=== PATIENT | female | born 1970 | race Caucasian/White ===

== ENCOUNTER 2016-10-29 10:42 | Outpatient (CLI) | payer OTHER | END 2016-10-29 10:43 | disposition home or self-care (01) | DX: Z79.899 Other long term (current) drug therapy (principal) ==

== ENCOUNTER 2018-04-01 16:41 | Outpatient (CLI) | payer OTHER ==
--- NOTE | 2018-04-01 17:17 | XRAY Report ---
Procedure Date: 04/01/2018 Accession Number: [id number] / [id number] Procedure: XR - Hand 2 View LT CPT Code: FULL RESULT: EXAM: LEFT HAND RADIOGRAPHY EXAM DATE: 04/01/2018 05:07 PM. CLINICAL HISTORY: SPRAIN OF RADIOCARPAL JOINT OF LT WRIST. COMPARISON: None. TECHNIQUE: 2 views. FINDINGS: Bones: Normal. No fractures or bone lesions. Joints: Normal. No subluxations. Soft Tissues: Normal. No soft tissue swelling. IMPRESSION: Normal hand radiography. RAD[facility]
--- NOTE | 2018-04-01 17:18 | XRAY Report ---
Procedure Date: 04/01/2018 Accession Number: [id number] / [id number] Procedure: XR - Wrist 4 View LT CPT Code: FULL RESULT: EXAM: LEFT WRIST RADIOGRAPHY EXAM DATE: 04/01/2018 05:07 PM. CLINICAL HISTORY: SPRAIN OF RADIOCARPAL JOINT OF LT WRIST. COMPARISON: None. TECHNIQUE: 4 views. FINDINGS: Bones: Normal. No fractures or bone lesions. Joints: Normal. No subluxations. Soft Tissues: Normal. No soft tissue swelling. IMPRESSION: Normal wrist radiography. RADIA
== END 2018-04-01 16:42 | disposition home or self-care (01) ==
LOC: DI 16:41
PROVIDERS: ATTEND Internal Medicine
DX: S63.522A Sprain of radiocarpal joint of left wrist, initial encounter (principal)

== ENCOUNTER 2018-05-26 15:05 | Outpatient (CLI) | payer OTHER ==
--- NOTE | 2018-05-27 19:04 | MRI Report ---
Reason: THUMB PAIN,LEFT,DOI [id number] Procedure Date: 05/26/2018 Accession Number: [id number] / [id number] Procedure: MRI - Hand LT W/O CPT Code: FULL RESULT: EXAM: LEFT HAND MRI WITHOUT CONTRAST EXAM DATE: 05/26/2018 04:17 PM. CLINICAL HISTORY: Thumb pain, left, DOI 03/30/2018. COMPARISON: None. TECHNIQUE: Multiplanar, multisequence T1-weighted and fluid-sensitive sequences of the hand without contrast. Other: None. FINDINGS: Bones: No fractures or subluxations. No marrow edema. No bone lesions. Cartilage: The articular cartilage is unremarkable. Ligaments: The visualized collateral ligaments are intact. Tendons: Mild tenosynovitis of the extensor digitorum tendons at the level of the distal carpal row (image 18 series 601). Mild tenosynovitis distal extensor carpi radialis longus and brevis tendons. Musculature: No edema or fatty atrophy. Other: Small amount of fluid first carpometacarpal compartment. Small amount of fluid first metacarpophalangeal joint. The subcutaneous tissues are unremarkable. IMPRESSION: No MRI abnormalities in the hand. [facility] MUSCULOSKELETAL RADIOLOGY SECTION
== END 2018-05-26 15:06 | disposition home or self-care (01) ==
LOC: DI 15:05
PROVIDERS: ATTEND Orthopaedic Surgery
DX: M79.645 Pain in left finger(s) (principal)

== ENCOUNTER 2019-03-16 11:29 | Outpatient (CLI) | payer OTHER ==
--- NOTE | 2019-03-21 08:57 | Mammography Report ---
Reason: SCREENING MAMMO Procedure Date: 03/16/2019 Accession Number: [id number] / [id number] Procedure: MGS - Screening Mammo Dig Bilat CPT Code: FULL RESULT: EXAM: Screening Mammo Dig Bilat DATE: 03/16/2019 11:52 AM CLINICAL HISTORY: Screening encounter. Family history of breast cancer in the mother at the age of 55 and a paternal grandmother at the age of 50. TECHNIQUE: (B) - Bilateral CC, laterally exaggerated CC, MLO views were obtained. COMPARISON: None PARENCHYMAL PATTERN: (D) - The breast(s) demonstrate(s) heterogeneously dense fibroglandular parenchyma. FINDINGS: There are no suspicious masses, calcifications, or areas of distortion. IMPRESSION: Negative examination. BI-RADS category 1. RECOMMENDATION: (ANNUAL) - Recommend routine annual screening mammography. BI-RADS CATEGORY: (1) - Negative. STANDARD QUALIFYING STATEMENTS: 1. This examination was reviewed with the aid of Computer-Aided Detection (CAD). 2. A negative or benign imaging report should not preclude biopsy if clinically suspicious findings are present. 3. Dense breasts may obscure an underlying neoplasm. 4. This examination was reviewed without the aid of 3D breast imaging (tomosynthesis).
== END 2019-03-16 11:30 | disposition home or self-care (01) ==
LOC: DI.S 11:29
PROVIDERS: ATTEND Physician Assistant Medical
DX: Z12.31 Encounter for screening mammogram for malignant neoplasm of breast (principal); Z80.3 Family history of malignant neoplasm of breast
CPT/HCPCS: 77067

== ENCOUNTER 2019-06-15 13:06 | Outpatient (CLI) | payer OTHER ==
--- NOTE | 2019-06-15 15:38 | Ultrasound Report ---
Reason: MENORRHAGIA/MENOMETRORRHAGIA Procedure Date: 06/15/2019 Accession Number: [id number] / [id number] Procedure: US - Pelvic w/Transvaginal CPT Code: FULL RESULT: EXAM: PELVIC ULTRASOUND EXAM DATE: 06/15/2019 02:41 PM. CLINICAL HISTORY: MENORRHAGIA/MENOMETRORRHAGIA. Stated LMP 05/26/2019. COMPARISON: None. TECHNIQUE: Realtime transabdominal pelvic scan performed to identify the uterus and adnexa and as an overview of other pelvic structures, followed by transvaginal scan to provide greater detail of the uterus and adnexa, with static image documentation. FINDINGS: Uterus: 9.3 x 4.3 x 5.5 cm, volume 117 cc. Anteverted position. Heterogeneous echotexture. Masses: 1. Exophytic left fundal fibroid 2.4 x 1.9 x 2.2 cm. Endometrium: 8.3 mm. Normal. Cervix: Numerous cervical likely nabothian cysts. Right Ovary: 2.7 x 1.6 x 2.2 cm, volume 4.9 cc. Normal echotexture and blood flow. Left Ovary: 2.0 x 1.0 x 1.4 cm, volume 1.4 cc. Normal echotexture and blood flow. Free Fluid: None. Other: None. IMPRESSION: 1. Uterine fibroid. 2. Endometrial thickness is in the normal range assuming premenopausal patient. 3. Numerous cervical nabothian cysts. RADIA
== END 2019-06-15 13:07 | disposition home or self-care (01) ==
LOC: DI 13:06
PROVIDERS: ATTEND Physician Assistant Medical
DX: D25.9 Leiomyoma of uterus, unspecified (principal); N88.8 Other specified noninflammatory disorders of cervix uteri
CPT/HCPCS: 76830; 76856

== ENCOUNTER 2019-06-27 16:29 | Outpatient (CLI) | payer OTHER ==
[2019-06-27 16:41] LABS: BASOPHILS # (AUTO) 0.1 10^3/uL (0.0-0.1); BASOPHILS % (AUTO) 0.7 %; EOSINOPHILS # (AUTO) 0.3 10^3/uL (0.0-0.7); HGB - HEMOGLOBIN 13.6 g/dL (12.0-16.0); LYMPHOCYTES # (AUTO) 2.7 10^3/uL (1.5-3.5); LYMPHOCYTES % (AUTO) 30.7 %; MEAN CORPUSCULAR HEMOGLOBIN 31.9 pg (27.0-31.0); MEAN CORPUSCULAR HGB CONC 32.8 g/dL (32.0-36.0); MEAN CORPUSCULAR VOLUME 97.4 fL (81.0-99.0); MEAN PLATELET VOLUME 9.2 fL (7.9-10.8); MONOCYTES # (AUTO) 0.4 10^3/uL (0.0-1.0); MONOCYTES % (AUTO) 4.1 %; NEUTROPHILS # (AUTO) 5.4 10^3/uL (1.5-6.6); NEUTROPHILS % (AUTO) 61.2 %; PLT - PLATELET COUNT 313 10^3/uL (130-450); RED BLOOD COUNT 4.26 10^6/uL (4.20-5.40); RED CELL DISTRIBUTION WIDTH 12.9 % (12.0-15.0); WHITE BLOOD COUNT 8.8 x10^3/uL (4.8-10.8)
== END 2019-06-27 16:30 | disposition home or self-care (01) ==
LOC: LAB 16:29
PROVIDERS: ATTEND Obstetrics & Gynecology
DX: N92.0 Excessive and frequent menstruation with regular cycle (principal); N92.1 Excessive and frequent menstruation with irregular cycle
CPT/HCPCS: 36415; 84443; 85025

== ENCOUNTER 2019-07-13 08:49 | Day surgery (SDC) | payer OTHER ==
[2019-07-13] MEDS ORDERED: NEOSTIGMINE 1 MG/1 ML 10 ML MDV IVP ONE (08:50)
[2019-07-13] MEDS ORDERED: GLYCOPYRROLATE 1 MG/5 ML VIAL IVP ONE (08:50)
[2019-07-13] MEDS ORDERED: HYDROmorphone 1 MG/ML SYRINGE IVP ONE (08:50)
[2019-07-13] MEDS ORDERED: DEXAMETHASONE 4 MG/ML VIAL IVP ONE (08:50)
[2019-07-13] MEDS ORDERED: ROCURONIUM 50 MG/5 ML VIAL IVP ONE (08:50)
[2019-07-13] MEDS ORDERED: MIDAZOLAM 2 MG/2 ML VIAL IVP ONE (08:50)
[2019-07-13] MEDS ORDERED: KETOROLAC 30 MG/ML VIAL IVP ONE (08:50)
[2019-07-13] MEDS ORDERED: ePHEDrine 50 MG/ML VIAL IVP ONE (08:50)
[2019-07-13] MEDS ORDERED: PROPOFOL 200 MG/20 ML VIAL IVP ONE (08:50)
[2019-07-13 09:05] LABS: HCG UR QUAL NEGATIVE
[2019-07-13] MEDS ORDERED: LACTATED RINGERS 1,000 ML IV ONE ×2 (09:09→10:50)
--- NOTE | 2019-07-13 09:25 | ANESTHESIA ---
Pre-Anesthesia VS, & Labs - Diagnosis menometrorhagia, request for sterilization - Procedure laproscopic salpingectomy Vital Signs: Temp Pulse Resp BP Pulse Ox 37 C 110 H 16 120/84 H 98 07/13/19 09:10 07/13/19 09:10 07/13/19 09:10 07/13/19 09:10 07/13/19 09:10 Height 5 ft 6 in Weight (kg) 72.2 kg - Is Patient ?: No Home Medications and Allergies Home Medications: Ambulatory Orders Amitriptyline HCl 100 mg PO QPM 07/07/19 Naproxen 500 mg PO BID PRN 07/07/19 Levothyroxine [Synthroid] 25 mcg PO QDAC 09/25/14 Methylphenidate HCl [Ritalin] 20 mg PO TID 09/25/14 Amitriptyline HCl 100 mg PO QPM 07/07/19 Naproxen 500 mg PO BID PRN 07/07/19 Allergies/Adverse Reactions: Allergies Allergy/AdvReac Type Severity Reaction Status Date / Time amoxicillin trihydrate * Allergy Severe Hives Verified 09/28/14 11:13 [From Augmentin] codeine Allergy Severe Hives Verified 09/28/14 11:13 potassium clavulanate * Allergy Severe Hives Verified 09/28/14 11:13 [From Augmentin] Anes History & Medical History - Anesthetic History Anesthesia Complications: reports: No previous complications Family history of Anesthesia Complications: Denies Family history of Malignant Hyperthermia: Denies - Medical History Cardiovascular: reports: None Pulmonary: reports: None Gastrointestinal: reports: None Urinary: reports: None Neuro: reports: None Musculoskeletal: reports: None Endocrine/Autoimmune: reports: HyPOthyroidism Blood Disorders: reports: None Skin: reports: None, Other Smoking Status: Current every day smoker ([id number] yrs) Psychosocial: reports: No issues indicated - Surgical History General: Cholecystectomy, Other Gynecologic: section Orthopedic: Other Dermatologic: Skin cancer surgery Exam General: Alert, Oriented x3, Cooperative, No acute distress Dental: WNL Mouth Openin Fingerbreadth Neck Mobility: Normal Mallampati classification: I Thyromental Distance: 4-6 cm Respiratory: Lungs clear, Normal breath sounds, No respiratory distress, No accessory muscle use Cardiovascular: Regular rate, Normal S1, Normal S2, No murmurs Abdomen: Normal bowel sounds, Soft, No tenderness, No hepatospenomegaly, No masses Extremities: No clubbing, No cyanosis, No edema, Normal pulses, No tenderness/swelling Neurological: Normal gait, Normal speech, Strength at 5/5 X4 ext, Normal tone, Sensation intact, Cranial nerves 3-12 NL, Reflexes 2+ Mental/Cognitive Status: Alert/Oriented X3, Normal for patient Cognitive Status: Within normal limits Plan Anesthesia Type: General Consent for Procedure(s) Verified and Reviewed: Yes Code Status: Attempt Resuscitation ASA classification: 2-Mild systemic disease Is this case an emergency?: No
[2019-07-13 09:29] LABS: BILIRUBIN,URINE NEGATIVE (NEGATIVE); GLUCOSE, URINE (UA) NEGATIVE (NEGATIVE); KETONES,URINE (UA) NEGATIVE (NEGATIVE); LEUKOCYTE ESTERASE, URINE TRACE (NEGATIVE); NITRITE,URINE NEGATIVE (NEGATIVE); OCCULT BLOOD,URINE SMALL (NEGATIVE); PROTEIN,URINE NEGATIVE (NEGATIVE); UROBILINOGEN,URINE 0.2 (NORMAL) E.U./dL (NORMAL)
[2019-07-13 09:31] LABS: CLARITY,URINE CLOUDY (CLEAR)
[2019-07-13 09:38] LABS: BASOPHILS # (AUTO) 0.1 10^3/uL (0.0-0.1); BASOPHILS % (AUTO) 0.8 %; EOSINOPHILS # (AUTO) 0.3 10^3/uL (0.0-0.7); EOSINOPHILS % (AUTO) 4.1 %; HGB - HEMOGLOBIN 14.1 g/dL (12.0-16.0); LYMPHOCYTES # (AUTO) 2.3 10^3/uL (1.5-3.5); LYMPHOCYTES % (AUTO) 28.2 %; MEAN CORPUSCULAR HEMOGLOBIN 31.6 pg (27.0-31.0); MEAN CORPUSCULAR HGB CONC 33.9 g/dL (32.0-36.0); MEAN CORPUSCULAR VOLUME 93.3 fL (81.0-99.0); MEAN PLATELET VOLUME 9.2 fL (7.9-10.8); MONOCYTES # (AUTO) 0.5 10^3/uL (0.0-1.0); MONOCYTES % (AUTO) 5.6 %; NEUTROPHILS # (AUTO) 4.9 10^3/uL (1.5-6.6); PLT - PLATELET COUNT 346 10^3/uL (130-450); RED BLOOD COUNT 4.46 10^6/uL (4.20-5.40); RED CELL DISTRIBUTION WIDTH 12.8 % (12.0-15.0)
[2019-07-13 09:42] LABS: BACTERIA,URINE Many /HPF (None Seen); RBC,URINE 0-5 /HPF (0-5); SQUAMOUS EPITHELIAL CELL,UR MANY Squamous (<= Few)
[2019-07-13] MEDS ORDERED: LIDOCAINE 1%-EPI 1:100000 20 ML MDV ONE (09:42)
[2019-07-13] MEDS ORDERED: BUPIVACAINE 0.25% PF 30 ML VIAL ONE (09:42)
[2019-07-13] MEDS ORDERED: BUPIVACAINE 0.25% PF 30 ML VIAL SUBQ ONE ×2 (11:09)
[2019-07-13] MEDS ORDERED: ONDANSETRON 4 MG/2 ML VIAL IVP PRN (12:17)
[2019-07-13] MEDS ORDERED: HYDROcod/ACETAM 5/325 MG TABLET PO PRN (12:17)
[2019-07-13] MEDS ORDERED: IBUPROFEN 600 MG TABLET PO PRN (12:19)
[2019-07-13] MEDS ORDERED: CYCLOBENZAPRINE 10 MG TABLET PO ONE (12:19)
[2019-07-13] MEDS: fentaNYL 100 MCG/2 ML VIAL ONE ×2 (12:24→12:29)
[2019-07-13] MEDS ORDERED: LACTATED RINGERS 500 ML IV ONE (12:46)
[2019-07-13 13:13] VITALS: BP 118/74
--- NOTE | 2019-07-13 17:23 | OPERATIVE REPORT ---
DATE OF SERVICE: 07/13/2019 Physician: Temo Woods DO PREOPERATIVE DIAGNOSES 1. Menometrorrhagia. 2. Voluntary request for sterilization. POSTOPERATIVE DIAGNOSES 1. Menometrorrhagia. 2. Request for sterilization. 3. Right ovarian cyst. 4. Endometriosis. 5. Uterine fibroids. PROCEDURE: Laparoscopic bilateral salpingectomy with fulguration of endometrial implants and endomet rial thermal ablation. SURGEON: Temo Woods DO. ANESTHESIA: General. ESTIMATED BLOOD LOSS: 10 mL WOUND CLASSIFICATION: 2. COUNTS: Sponge count was correct. Needle count was not indicated. SURGICAL FINDINGS: The omentum was adhesed to the anterior abdominal wall above the umbilicus to the level of what appeared to be the falciform ligament. The liver margins were unremarkable as was the diaphragm. The gallbladder was not seen or the appendix. The left fallopian tube was unremarkable. The right fallopian tube did have a paratubal cyst along with it. The left ovary revealed signs of recent ovulation. The right ovary had what appeared to be three cysts. The uterus did have exophyt ic fibroid posteriorly on the left, just below the attachment of the fallopian tube on that side. Th e anterior cul-de-sac revealed scarring from previous surgical procedures. There was also an unident ified lesion that had been previously clipped off with a surgical clip in the anterior cul-de-sac. P hotographic documentation of all of these areas took place. PROCEDURE IN DETAIL: The patient was taken to the operative suite, placed on the surgical table in s upine position. Under general anesthesia, she was placed in Joseph stirrups, prepped and draped in th e usual fashion. After an appropriate timeout took place, a speculum was placed in the vaginal vault and the cervix visualized. A single-tooth tenaculum was placed onto the anterior lip of the cervix. The uterus then sounded to a depth of 9 cm. The cervix was dilated to 6 mm. The HUMI was then santhosh pepper into the uterus and the balloon insufflated with saline. The single-tooth tenaculum was removed from the anterior lip of the cervix and hemostasis followed. The surgeon's gloves were changed and attention was placed to the abdomen. Prior to making any abdom inal incisions, all areas were anesthetized with 0.25% Marcaine. A 5 mm incision was then made in th e infraumbilical fold. The abdominal wall was elevated in 3-point fashion. A Veress needle was exte nded through the skin incision and into the abdomen as the abdominal wall was elevated in 3-point fas hion. The CO2 was applied and good rates of flow and good intraabdominal pressures noted. The abdom en was then insufflated with approximately 3 liters of CO2. The Veress needles were then withdrawn. The Optiview 5 mm port was then used under direct laparoscopic visualization. This was placed as th e abdominal wall was elevated. All layers were noted coming into the abdomen. The trocar was remove d and CO2 applied. Good rates flow and good intraabdominal pressures was noted. The laparoscope was then advanced into the abdomen. A second port was then placed in the midline in the suprapubic area to accommodate a 5 mm port. A third port was placed approximately 4 fingerbreadths above the anteri or iliac spine on the left. This also accommodated a 5 mm port. These ports were placed under direc t laparoscopic visualization. A probe was then placed and the above findings noted. The left fallop dionisio tube was then grasped and dissected free from the mesosalpinx using the LigaSure device. The tub e was then removed and sent to pathology for evaluation. The right fallopian tube was now addressed. This was dissected free from the mesosalpinx, again using the LigaSure device. This was able to in clude the paratubal cyst on the right fallopian tube. The tube was then transected at the cornu. Th e fallopian tube was then removed and sent to pathology for evaluation. There was oozing near the ov vinny on the right side. This was rendered hemostatic using the LigaSure device. The area was thoroug hly irrigated. No signs of bleeding were noted. Hemostasis followed. The CO2 was now allowed to es cape from the abdomen. The trocars were all removed. The abdominal incisions were now reapproximate d using 4-0 Monocryl suture in a subcuticular fashion. Hemostasis followed. Steri-Strips were place d and sterile dressings were placed. Attention was now placed to the vagina. The weighted speculum was again placed in the vaginal vault and the cervix visualized. A single-tooth tenaculum was placed onto the anterior lip of the cervix. It had been previously noted that when the uterus had been sounded to 9 cm that the length of the en docervical canal appeared to be 4 cm; therefore, the endometrial cavity measured 5 cm in length. The cervix was now dilated to 8 mm, and the NovaSure device extended into the fundus of the uterus and t he array was deployed. The width of the cavity was measured at 4.5 cm. Once the NovaSure device had ascertained that there was cavity integrity, the NovaSure device then cycled at 124 justice for 1 donny te 18 seconds. The NovaSure device was then removed from the uterus. No signs of bleeding were note d. Hemostasis followed. The single-tooth tenaculum was removed from the anterior lip of the cervix. No signs of bleeding were noted. Hemostasis followed. The vaginal vault was then cleared of all b lood clots and debris and hemostasis followed. The weighted speculum was removed from the vaginal va ult. The patient was now taken to recovery room in stable condition. TD: 07/13/2019 12:24
== END 2019-07-13 08:50 | disposition home or self-care (01) ==
LOC: SDS 08:49
PROVIDERS: ATTEND Obstetrics & Gynecology
PROC: 0U544ZZ Destruction of Uterine Supporting Structure, Percutaneous Endoscopic Approach (ICD-10-PCS; 2019-07-13)
PROC: 0UT74ZZ Resection of Bilateral Fallopian Tubes, Percutaneous Endoscopic Approach (ICD-10-PCS; principal; 2019-07-13 10:00)
PROC: 0U5B7ZZ Destruction of Endometrium, Via Natural or Artificial Opening (ICD-10-PCS; 2019-07-13 10:00)
DX: N92.1 Excessive and frequent menstruation with irregular cycle (principal); Z30.2 Encounter for sterilization; N83.201 Unspecified ovarian cyst, right side; N80.3 Endometriosis of pelvic peritoneum; D25.9 Leiomyoma of uterus, unspecified; N83.8 Other noninflammatory disorders of ovary, fallopian tube and broad ligament; F17.210 Nicotine dependence, cigarettes, uncomplicated
CPT/HCPCS: 58353; 58661; 58662; 81001; 81025; 85025; A9270; J1170; J7120; 87086

== ENCOUNTER 2019-08-31 10:50 | Outpatient (CLI) | payer OTHER ==
--- NOTE | 2019-08-31 13:06 | Ultrasound Report ---
Reason: OVARIAN CYST Procedure Date: 08/31/2019 Accession Number: [id number] / [id number] Procedure: US - Pelvic w/Transvaginal CPT Code: Final Report FULL RESULT: EXAM: PELVIC ULTRASOUND EXAM DATE: 08/31/2019 12:18 PM. CLINICAL HISTORY: Ovarian cyst. COMPARISON: PELVIC W/TRANSVAGINAL 06/15/2019 1:19 PM. TECHNIQUE: Realtime transabdominal pelvic scan performed to identify the uterus and adnexa and as an overview of other pelvic structures, followed by transvaginal scan to provide greater detail of the uterus and adnexa, with static image documentation. FINDINGS: Uterus: 8.2 x 3.7 x 4.4 cm, volume 71 cc. Anteverted position. Normal overall size and echotexture. Masses: Arising from the endocervical region is an apparent partially cystic partially solid mass with vascular flow at color Doppler, difficult to measure as the margins are not delineated. Endometrium: A small amount of fluid is seen within the endometrium. The endometrium itself appears otherwise unremarkable within the uterine body and fundus, 7 mm. Cervix: Nabothian cysts are noted. Right Ovary: 2.3 x 1.7 x 2.2 cm, volume 4.5 cc. A 1.8 cm cyst is likely within physiologic limits. Left Ovary: 1.7 x 1.0 x 1.1 cm, volume 0.9 cc. Limited visualization with no gross abnormality. Free Fluid: None. Other: None. IMPRESSION: Suggestion of vascular endocervical mass, recommend direct visualization/tissue sampling. RADIA
== END 2019-08-31 10:51 | disposition home or self-care (01) ==
LOC: DI 10:50
PROVIDERS: ATTEND Obstetrics & Gynecology
DX: R93.89 Abnormal findings on diagnostic imaging of other specified body structures (principal)
CPT/HCPCS: 76830; 76856

== ENCOUNTER 2021-12-12 11:12 | Outpatient (CLI) | payer OTHER ==
[2021-12-12 14:51] LABS: BASOPHILS # (AUTO) 0.1 10^3/uL (0.0-0.1); BASOPHILS % (AUTO) 0.7 %; EOSINOPHILS % (AUTO) 0.1 %; HCT - HEMATOCRIT 42.8 % (37.0-47.0); HGB - HEMOGLOBIN 14.5 g/dL (12.0-16.0); LYMPHOCYTES # (AUTO) 3.2 10^3/uL (1.5-3.5); LYMPHOCYTES % (AUTO) 38.5 %; MEAN CORPUSCULAR HEMOGLOBIN 31.9 pg (27.0-31.0); MEAN CORPUSCULAR HGB CONC 33.9 g/dL (32.0-36.0); MEAN CORPUSCULAR VOLUME 94.1 fL (81.0-99.0); MEAN PLATELET VOLUME 9.8 fL (7.9-10.8); MONOCYTES # (AUTO) 0.5 10^3/uL (0.0-1.0); MONOCYTES % (AUTO) 6.1 %; NEUTROPHILS # (AUTO) 4.5 10^3/uL (1.5-6.6); NEUTROPHILS % (AUTO) 54.5 %; PLT - PLATELET COUNT 396 10^3/uL (130-450); RED BLOOD COUNT 4.55 10^6/uL (4.20-5.40); RED CELL DISTRIBUTION WIDTH 13.4 % (12.0-15.0); WHITE BLOOD COUNT 8.2 x10^3/uL (4.8-10.8)
[2021-12-12 15:42] LABS: ALBUMIN 3.7 g/dL (3.2-5.5); ALBUMIN/GLOBULIN RATIO 1.3 (1.0-2.2); ALKALINE PHOSPHATASE 49 IU/L (42-121); ALT ALANINE AMINOTRANSFERASE 15 IU/L (10-60); AST ASPARTATE AMINOTRANSFERASE 17 IU/L (10-42); BUN - BLOOD UREA NITROGEN 9 mg/dL (6-20); CALCIUM 8.9 mg/dL (8.5-10.3); CARBON DIOXIDE - CO2 26 mmol/L (21-32); CHLORIDE 101 mmol/L (101-111); CHOL/HDL RATIO 2.1 (<4.4); CHOLESTEROL 210 mg/dL; CREATININE 0.6 mg/dL (0.4-1.0); GFR - MDRD 106 (>89); GLUCOSE 90 mg/dL (70-100); HDL CHOLESTEROL 99 mg/dL; LDL CHOLESTEROL,CALCULATED 101 mg/dL; POTASSIUM 4.2 mmol/L (3.5-5.0); SODIUM 135 mmol/L (135-145); TOTAL PROTEIN 6.5 g/dL (6.7-8.2); TRIGLYCERIDES 49 mg/dL; VLDL CHOLESTEROL 10 mg/dL
[2021-12-12 15:43] LABS: THYROID STIMULATING HORMONE 2.15 uIU/mL (0.34-5.60)
== END 2021-12-12 11:13 | disposition home or self-care (01) ==
LOC: LAB.S 11:12
PROVIDERS: ATTEND Registered Nurse
DX: E03.9 Hypothyroidism, unspecified (principal); Z79.899 Other long term (current) drug therapy
CPT/HCPCS: 36415; 80053; 80061; 83721; 84443; 85025

== ENCOUNTER 2022-10-16 17:02 | Emergency (ER) | payer OTHER ==
[2022-10-16] MEDS ORDERED: HYDROmorphone 1 MG/ML CARPUJECT IM STA (17:17)
--- NOTE | 2022-10-16 17:21 | ED Physician Documentation ---
History of Present Illness - Stated complaint Stated Complaint: LT THUMB INJ - Chief complaint Chief Complaint: Trauma Ext - Additonal information Additional information: History provided by patient. Reliable historian. 52-year-old female presents emergency department for evaluation of acute left thumb and wrist injury. She tripped and fell onto an outstretched hand about 1 PM. Since then she has had swelling and ecchymosis at the base of her thumb and on the volar side of her wrist over the radius. Tender with any movement and palpation. She is left-hand dominant. No history of previous injury. Did not strike her head or lose consciousness. Is not anticoagulated. Review of Systems Constitutional: reports: Reviewed and negative Musculoskeletal: reports: Joint pain PD PAST MEDICAL HISTORY - Past Medical History Cardiovascular: None Respiratory: None Neuro: None Endocrine/Autoimmune: HyPOthyroidism GI: None : None HEENT: Chronic vision loss Psych: ADD/ADHD Musculoskeletal: None Derm: None, Other - Past Surgical History General: Cholecystectomy, Other Ortho: Other /CORRECTIONS CORPORAL: section Derm: Skin cancer surgery - Present Medications Home Medications: Ambulatory Orders Medication Instructions Recorded Confirmed Amitriptyline HCl 150 mg PO QPM 07/07/19 10/16/22 HYDROcod/ACETAM 5/325 [Alexandria 5/325] 1 tablet PO BID PRN #10 tablet 10/16/22 - Allergies Allergies/Adverse Reactions: Allergies Allergy/AdvReac Type Severity Reaction Status Date / Time amoxicillin trihydrate * Allergy Severe Hives Verified 10/16/22 17:14 [From Augmentin] codeine Allergy Severe Hives Verified 10/16/22 17:14 potassium clavulanate * Allergy Severe Hives Verified 10/16/22 17:14 [From Augmentin] - Social History Smoking Status: Current every day smoker ([id number] yrs) PD ED PE EXPANDED - General General: Alert, In Pain - Extremities Extremities: Left wrist (Swelling and ecchymosis at the base of the left thumb and volar portion of the radial wrist. Reduced flexion extension secondary to pain. Positive snuffbox tenderness. 2+ radial pulse. Distally intact CMS T) Results - Vitals Vitals: Vital Signs - 24 hr 10/16/22 17:12 Temperature 36.2 C L Heart Rate 116 H Respiratory 14 Rate Blood Pressure 107/81 H O2 Saturation 98 Oxygen O2 Source Room air - Rads (name of study) left wrist Radiology: Final report received (No acute fracture. No osseous lesion.) PD Medical Decision Making - ED course Complexity details: reviewed results, re-evaluated patient, considered differential, d/w patient ED course: 52-year-old female who is left-hand dominant presents emergency department after a FOOSH. She presents with a fair amount of swelling and ecchymosis on the volar side of her left wrist as well as snuffbox tenderness. Initial x-ray imaging per the radiologist is negative for occult fracture. However given the amount of ecchymosis and location of tenderness she was placed in a temporary fiberglass thumb spica splint. Patient was administered Dilaudid 1 mg IV here in the emergency department with good resolution of her symptoms. She is advised close follow-up with PCP or referral to orthopedics for repeat evaluation and imaging in 7 to 10 days time. I discussed routine splint care as well as the usual emergent return precautions. In general I did recommend Tylenol and ibuprofen for discomfort but for more severe pain I did write a pres cription for limited amount of Alexandria. I am prescribing a short course of short-acting opioid pain medication for this patient. I have reviewed the patients [employer] and no concerning findings were noted. I have discussed that the opioids are for short term therapy only, and will not be refilled from the ED. Departure - Departure Disposition: 01 Home, Self Care Clinical Impression: Tenderness of anatomical snuffbox Contusion of left thumb Qualifiers: Encounter type: initial encounter Damage to nail status: without damage Qualified Code(s): S60.012A - Contusion of left thumb without damage to nail, initial encounter Contusion of left wrist Qualifiers: Encounter type: initial encounter Qualified Code(s): S60.212A - Contusion of left wrist, initial encounter Instructions: ED Contusion Hand Ch Follow-Up: Aime Read MD [Provider Admit Priv/Credential] - Hafsa Connell ARNP [Primary Care Provider] - Prescriptions: HYDROcod/ACETAM 5/325 [Alexandria 5/325] 1 tablet PO BID PRN #10 tablet PRN Reason: Pain Comments: You came to the emergency department today after a fall. You do have a fair amount of bruising on your left wrist over the radius and Carpal bones. The x- ray does not show an obvious fracture but given the amount of swelling and the location of your tenderness we have placed you in a temporary thumb spica splint. You do need to request referral to orthopedics for follow-up. Your hand should be reevaluated in 7 to 10 days. If at that time of reevaluation swelling and pain is improved they can make the determination if you need further splinting or imaging. In general I want you to take ibuprofen and Tylenol bxnr-kpl-jstadyp for discomfort. For severe pain I have prescribed a limited amount of Alexandria which cannot be refilled from the emergency department. Your splint cannot get wet. If it gets wet, you have numbness or tingling in your fingers, they are cold dusky we have any concerns or worsening pain with the splint you should return to the ER for reevaluation. I am prescribing a short course of narcotic pain medication for you. These are potentially dangerous and addictive medications that should be used carefully. These medications may constipate you. Take an waki-opw-vfavdem stool softener (docusate) twice daily with plenty of water while taking these medications. If you go 24 hours without a bowel movement, take zfaz-nfb-bdyqwzd miralax, per package instructions. Do not drink or drive while taking these medications. If you received narcotic or sedating medications while in the emergency department, do not drive for 24 hours. Store this medication in a safe, secure place and out of reach of children. It is a violation of federal law to give or sell this medication to another person or to use in a manner other than prescribed. The ED will not refill narcotic prescriptions, including prescriptions lost or stolen. To dispose of unwanted medications: 1. [facility] at [address] in [place] has a medication drop box. They accept prescription medications (in pill form) Thursday through Thursday 9:00 a.m. to 5:00 p.m. 2. The [facility] [employer] accepts prescription medications (in pill form only) for disposal year round. Call for more information. 3. Contact the [facility] for the next [facility] sponsored prescription drug collection event. , [phone], or [phone]; Note that many narcotic pain relievers also contain Tylenol/acetaminophen. Please ensure that your total dose of acetaminophen from all sources does not exceed 3 g (3000 mg) per day.
--- NOTE | 2022-10-16 17:40 | XRAY Report ---
PROCEDURE: Wrist 3 View LT INDICATIONS: FOOSH; thumb and wrist swelling TECHNIQUE: 3 views of the wrist were acquired. COMPARISON: None FINDINGS: Bones: No fractures or dislocations. No suspicious bony lesions. Scaphoid view: Not requested Soft tissues: No suspicious soft tissue calcifications. IMPRESSION: No acute fracture. No osseous lesion. If symptoms and/or clinical suspicion for pathology continue, f urther assessment with repeat plain films, or advanced imaging (e.g., CT, MRI, or bone scan) is recom mended for further assessment. Reviewed by: Hilary Vazquez MD on 10/16/2022 5:39 PM PST Approved by: Hilary Vazquez MD on 10/16/2022 5:39 PM PST Station ID: [id number]
[2022-10-16 19:18] VITALS: BP 142/95
== END 2022-10-16 19:17 | disposition home or self-care (01) ==
LOC: ED 17:02
DX: S60.012A Contusion of left thumb without damage to nail, initial encounter (principal); S60.212A Contusion of left wrist, initial encounter; W01.0XXA Fall on same level from slipping, tripping and stumbling without subsequent striking against object, initial encounter; F17.210 Nicotine dependence, cigarettes, uncomplicated
CPT/HCPCS: 73110; 96372; 99283; J1170

== ENCOUNTER 2022-10-22 12:40 | Outpatient (CLI) | payer OTHER ==
--- NOTE | 2022-10-22 19:10 | XRAY Report ---
PROCEDURE: Wrist 3 View LT INDICATIONS: WRIST PAIN, LEFT TECHNIQUE: 3 views of the wrist were acquired. COMPARISON: X-ray wrist 10/16/2022 FINDINGS: Bones: No fractures or dislocations. No suspicious bony lesions. Soft tissues: No suspicious soft tissue calcifications. IMPRESSION: No acute fracture or dislocation. Occult injury cannot be excluded. If concern persists, CT or MR is recommended. Reviewed by: Dorothy Saxena MD on 10/22/2022 7:08 PM [facility] Approved by: Dorothy Saxena MD on 10/22/2022 7:08 PM [facility] Station ID: [id number]
== END 2022-10-22 12:41 | disposition home or self-care (01) ==
LOC: DI 12:40
PROVIDERS: ATTEND Student in an Organized Health Care Education/Training Program
DX: M25.532 Pain in left wrist (principal)

== ENCOUNTER 2022-10-23 09:18 | Outpatient (CLI) | payer OTHER ==
--- NOTE | 2022-10-23 12:08 | XRAY Report ---
PROCEDURE: Hand 3 View LT INDICATIONS: WRIST PAIN LEFT TECHNIQUE: 3 views of the hand(s) acquired. COMPARISON: 10/22/2022 FINDINGS: Bones: No fractures or dislocations. No suspicious bony lesions. Casting material obscures fine [place]lar[place] detail. Soft tissues: No suspicious soft tissue calcifications. IMPRESSION: Casting material obscures fine bony detail. No displaced fracture. Reviewed by: Fernie Carrera on 10/23/2022 12:07 PM [facility] Approved by: Fernie Carrera on 10/23/2022 12:07 PM [facility] Station ID: [id number]
== END 2022-10-23 09:19 | disposition home or self-care (01) ==
LOC: DI 09:18
PROVIDERS: ATTEND Student in an Organized Health Care Education/Training Program
DX: M25.532 Pain in left wrist (principal)

== ENCOUNTER 2022-10-31 06:55 | Outpatient (CLI) | payer OTHER ==
--- NOTE | 2022-10-31 09:33 | MRI Report ---
PROCEDURE: WRIST WO - LT INDICATIONS: LEFT WRIST PAIN TECHNIQUE: Noncontrast coronal T1 spin echo, proton density fast spin echo and T2 fast spin echo with fat satura tion; coronal 3-D gradient echo, axial T1 spin echo and T2 fast spin echo with fat saturation, sagitt al T1 spin echo through the wrist. COMPARISON: Left wrist radiographs 11/06 and 11/03/2022. FINDINGS: Image quality: Excellent. Bones and cartilage: The carpal bones are normally aligned. No bone marrow contusions or fractures. No evidence for avascular necrosis. Cystic changes within the lunate are most likely degenerative. The first metacarpal phalangeal joint is hyperextended. Carpal ligaments: The scapholunate and lunotriquetral ligaments appear intact. On sagittal images, the pisohamate ligament appears intact. Triangular fibrocartilage complex: Suspected focal degenerative perforation of the central triangular fibrocartilage disc. The radial and ulnar attachments appear to be intact. Tendons and soft tissues: There is a small amount of fluid in the flexor pollicis longus tendon francis th at the level of the thenar musculature, consistent with mild tenosynovitis. The remaining carpal t unnel structures appear normal, including the median nerve. The ulnar nerve appears normal within Gu yon's canal. There is volar subluxation of the extensor carpi ulnaris tendon relative to the ulnar gr oove, which may indicate prior injury to the subsheath. The remaining extensor tendon compartments de monstrate normal morphology, without pathologic tendon sheath fluid. Small ganglion cyst volar to the radiocarpal joint measures 5 x 4 x 5 mm. Mild soft tissue edema is seen within the volar thenar musc ulature involving the abductor pollicis brevis muscle, consistent with low-grade muscle strain. IMPRESSION: 1.Low-grade strain of the abductor pollicis brevis muscle. 2.Mild tenosynovitis of the flexor pollicis longus tendon. 3.No acute osseous fracture or trabecular bone injury. 4.Suspected chronic degenerative perforation of the central triangular fibrocartilage disc. 5.Volar subluxation of the extensor carpi ulnaris tendon is compatible with a prior injury to the ten don subsheath. Reviewed by: Myles Moreira MD on 10/31/2022 9:32 AM PDT Approved by: Myles Moreira MD on 10/31/2022 9:32 AM PDT Station ID: [id number]
== END 2022-10-31 06:56 | disposition home or self-care (01) ==
LOC: DI 06:55
PROVIDERS: ATTEND Student in an Organized Health Care Education/Training Program
DX: S66.812A Strain of other specified muscles, fascia and tendons at wrist and hand level, left hand, initial encounter (principal); M65.9 Synovitis and tenosynovitis, unspecified

== ENCOUNTER 2022-11-17 14:08 | Outpatient (CLI) | payer OTHER ==
--- NOTE | 2022-11-18 06:57 | XRAY Report ---
PROCEDURE: Hand 3 View LT INDICATIONS: LEFT HAND/THUMB PAIN TECHNIQUE: 3 views of the hand(s) acquired. COMPARISON: None. FINDINGS: Bones: No fractures or dislocations. No suspicious bony lesions. Mild degenerative joint disease at the radiocarpal joint, triscaphe joint, first, metacarpal joint, first metacarpal phalangeal joint a nd multiple interphalangeal joint. Soft tissues: No suspicious soft tissue calcifications or masses. IMPRESSION: Mild degenerative joint disease. Reviewed by: Shanna Watson MD on 11/18/2022 6:56 AM PDT Approved by: Shanna Watson MD on 11/18/2022 6:56 AM PDT Station ID: [id number]
== END 2022-11-17 14:09 | disposition home or self-care (01) ==
LOC: DI.WOS 14:08
PROVIDERS: ATTEND Orthopaedic Surgery
DX: M19.042 Primary osteoarthritis, left hand (principal)

== ENCOUNTER 2023-01-23 17:49 | Outpatient (CLI) | payer OTHER | END 2023-01-23 17:50 | disposition short-term general hospital (02) | LOC: EMS 17:49 | DX: S19.9XXA Unspecified injury of neck, initial encounter (principal); R20.0 Anesthesia of skin; V43.52XA Car driver injured in collision with other type car in traffic accident, initial encounter; Y92.413 State road as the place of occurrence of the external cause | CPT/HCPCS: A0425; A0429 ==

== ENCOUNTER 2023-01-26 18:52 | Emergency (ER) | payer OTHER ==
[2023-01-26 19:03] VITALS: BP 148/117
[2023-01-26] MEDS ORDERED: KETOROLAC 30 MG/ML VIAL IVP STA (19:32)
[2023-01-26] MEDS ORDERED: diphenhydrAMINE INJ 50 MG/ML VIAL IVP STA (19:32)
[2023-01-26] MEDS ORDERED: DROPERIDOL 5 MG/2 ML VIAL IVP STA (19:32)
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
== END 2023-01-26 20:49 | disposition home or self-care (01) ==
LOC: ED 18:52
DX: G43.909 Migraine, unspecified, not intractable, without status migrainosus (principal); F17.210 Nicotine dependence, cigarettes, uncomplicated
CPT/HCPCS: 96374; 96375; 99283; J1200

== ENCOUNTER 2023-02-19 10:31 | Outpatient (CLI) | payer OTHER ==
[2023-02-19 14:25] LABS: BASOPHILS # (AUTO) 0.1 10^3/uL (0.0-0.1); BASOPHILS % (AUTO) 0.6 %; EOSINOPHILS # (AUTO) 0.1 10^3/uL (0.0-0.7); EOSINOPHILS % (AUTO) 0.7 %; HCT - HEMATOCRIT 42.2 % (37.0-47.0); HGB - HEMOGLOBIN 14.1 g/dL (12.0-16.0); LYMPHOCYTES # (AUTO) 3.1 10^3/uL (1.5-3.5); LYMPHOCYTES % (AUTO) 33.4 %; MEAN CORPUSCULAR HGB CONC 33.4 g/dL (32.0-36.0); MEAN CORPUSCULAR VOLUME 95.9 fL (81.0-99.0); MEAN PLATELET VOLUME 9.8 fL (7.9-10.8); MONOCYTES # (AUTO) 0.5 10^3/uL (0.0-1.0); MONOCYTES % (AUTO) 4.9 %; NEUTROPHILS # (AUTO) 5.7 10^3/uL (1.5-6.6); NEUTROPHILS % (AUTO) 60.1 %; PLT - PLATELET COUNT 343 10^3/uL (130-450); RED CELL DISTRIBUTION WIDTH 12.9 % (12.0-15.0); WHITE BLOOD COUNT 9.4 x10^3/uL (4.8-10.8)
[2023-02-19 14:48] LABS: ALBUMIN 3.7 g/dL (3.2-5.5); ALBUMIN/GLOBULIN RATIO 1.2 (1.0-2.2); ALKALINE PHOSPHATASE 55 IU/L (42-121); ALT ALANINE AMINOTRANSFERASE 14 IU/L (10-60); AST ASPARTATE AMINOTRANSFERASE 13 IU/L (10-42); BILIRUBIN,TOTAL 0.4 mg/dL (0.2-1.0); BUN - BLOOD UREA NITROGEN 13 mg/dL (6-20); CALCIUM 8.7 mg/dL (8.5-10.3); CARBON DIOXIDE - CO2 26 mmol/L (21-32); CHLORIDE 109 mmol/L (101-111); CHOLESTEROL 188 mg/dL; CREATININE 0.7 mg/dL (0.4-1.0); GFR - MDRD 89 (>89); GLUCOSE 98 mg/dL (70-100); HDL CHOLESTEROL 94 mg/dL; LDL CHOLESTEROL,CALCULATED 83 mg/dL; LDL/HDL RATIO 0.9 (<4.4); POTASSIUM 4.2 mmol/L (3.5-5.0); SODIUM 139 mmol/L (135-145); TOTAL PROTEIN 6.8 g/dL (6.7-8.2); TRIGLYCERIDES 55 mg/dL; VLDL CHOLESTEROL 11 mg/dL
[2023-02-19 14:53] LABS: THYROID STIMULATING HORMONE 2.57 uIU/mL (0.34-5.60)
== END 2023-02-19 10:32 | disposition home or self-care (01) ==
LOC: LAB.S 10:31
PROVIDERS: ATTEND Registered Nurse
DX: E03.9 Hypothyroidism, unspecified (principal); Z79.899 Other long term (current) drug therapy; Z13.220 Encounter for screening for lipoid disorders
CPT/HCPCS: 36415; 80053; 80061; 83721; 84443; 85025

== ENCOUNTER 2024-01-04 13:42 | Outpatient (CLI) | payer OTHER ==
--- NOTE | 2024-01-04 15:56 | XRAY Report ---
PROCEDURE: Cervical Spine 4-5V INDICATIONS: CERVICAL SPONDYLOSIS TECHNIQUE: 4 views of the cervical spine acquired. COMPARISON: None. FINDINGS: Bones: No fractures or dislocations to the T1 level. Multilevel degenerative changes are present including osteophytosis and intervertebral disc space arjun rowing. There is normal range of motion from flexion to extension. No subluxation. Soft tissues: No prevertebral soft tissue swelling. IMPRESSION: 1. Moderate degenerative change. 2. No subluxation from flexion to extension. Reviewed by: Mayuri Springer MD on 01/04/2024 3:55 PM PDT Approved by: Mayuri Springer MD on 01/04/2024 3:55 PM PDT Station ID: [id number]
== END 2024-01-04 13:43 | disposition home or self-care (01) ==
LOC: DI 13:42
PROVIDERS: ATTEND Pain Medicine Pain Medicine
DX: M47.812 Spondylosis without myelopathy or radiculopathy, cervical region (principal)

== ENCOUNTER 2024-02-01 14:15 | Outpatient (CLI) | payer OTHER ==
--- NOTE | 2024-02-01 16:43 | MRI Report ---
PROCEDURE: Cervical Spine WO INDICATIONS: CERVICAL RADICULOPATHY TECHNIQUE: Noncontrast sagittal T1 spin echo and T2 fast spin echo, sagittal STIR, foraminal oblique sagittal T2 fast spin echo, and axial gradient echo or T2 fast spin echo through the cervical spine. COMPARISON: X-ray cervical spine 01/04/2024 FINDINGS: Image quality: Excellent. Alignment and Curvature: There is trace retrolisthesis of C4 on C5, C5 on C6. Bone Marrow: Marrow demonstrates normal overall signal. Spinal Cord: Visualized spinal cord has normal size and signal. No cerebellar tonsillar herniation. Paraspinous Soft Tissues: No paravertebral masses. Prevertebral soft tissues are normal in thicknes s. Discs: Mild multilevel disc desiccation. C2-C3: Minimal disc bulge without spinal stenosis or foraminal narrowing. C3-C4: Mild disc bulge with effacement anterior thecal sac. Mild to moderate right foraminal narrow ing with uncovertebral hypertrophy. C4-C5: Mild disc bulge with superimposed left posterior paracentral protrusion. There is effacement anterior thecal sac with overall appearance of mild spinal stenosis. Minimal to mild left and mild ri ght foraminal narrowing with uncovertebral hypertrophy. C5-C6: Mild disc bulge with mild spinal stenosis. Mild to moderate right and minimal to mild left fo raminal narrowing with uncovertebral hypertrophy. C6-C7: Mild disc bulge with superimposed left posterior paracentral protrusion. No spinal stenosis. No foraminal narrowing. C7-T1: No disc bulge, spinal stenosis or foraminal narrowing. IMPRESSION: Multilevel disc bulges. Multilevel foraminal narrowing overall mild to moderate secondary to facet and ligamentum flavum arth ropathy. Reviewed by: Dorothy Saxena MD on 02/01/2024 4:41 PM PDT Approved by: Dorothy Saxena MD on 02/01/2024 4:41 PM PDT Station ID: [id number]
== END 2024-02-01 14:16 | disposition home or self-care (01) ==
LOC: DI 14:15
PROVIDERS: ATTEND Pain Medicine Pain Medicine
DX: M50.31 Other cervical disc degeneration, high cervical region (principal); M48.02 Spinal stenosis, cervical region; M47.812 Spondylosis without myelopathy or radiculopathy, cervical region; M50.221 Other cervical disc displacement at C4-C5 level

== ENCOUNTER 2024-02-10 08:26 | Outpatient (CLI) | payer OTHER ==
--- NOTE | 2024-02-10 09:47 | Ultrasound Report ---
PROCEDURE: Soft Tissue Head or Neck INDICATIONS: ENLARGED LYMPH NODES TECHNIQUE: Real-time scanning was performed of the neck, with image documentation. COMPARISON: MRI 02/01/2024 FINDINGS: Prominent right neck lymph node measuring 2.3 x 0.8 x 1.2 cm. There is normal fatty hilum and measure s less than 1 cm in short axis. No prominent lymph nodes within the left neck. IMPRESSION: Prominent right neck lymph node which is less than 1 cm in short axis and demonstrates a normal fatty hilum. This is favored to be reactive, metastatic disease is not entirely excluded and clinical foll ow-up is recommended. Reviewed by: Jj Vuong MD on 02/10/2024 9:45 AM PDT Approved by: Jj Vuong MD on 02/10/2024 9:45 AM PDT Station ID: [id number]
== END 2024-02-10 08:27 | disposition home or self-care (01) ==
LOC: DI 08:26
PROVIDERS: ATTEND Registered Nurse
DX: R59.0 Localized enlarged lymph nodes (principal)

== ENCOUNTER 2024-02-19 14:26 | Outpatient (CLI) | payer OTHER ==
[2024-02-19 19:55] LABS: BASOPHILS # (AUTO) 0.1 10^3/uL (0.0-0.1); BASOPHILS % (AUTO) 0.5 %; HCT - HEMATOCRIT 43.5 % (37.0-47.0); HGB - HEMOGLOBIN 14.5 g/dL (12.0-16.0); LYMPHOCYTES # (AUTO) 3.3 10^3/uL (1.5-3.5); MEAN CORPUSCULAR HEMOGLOBIN 32.4 pg (27.0-31.0); MEAN CORPUSCULAR HGB CONC 33.3 g/dL (32.0-36.0); MEAN CORPUSCULAR VOLUME 97.1 fL (81.0-99.0); MEAN PLATELET VOLUME 9.6 fL (7.9-10.8); MONOCYTES # (AUTO) 0.4 10^3/uL (0.0-1.0); MONOCYTES % (AUTO) 3.1 %; NEUTROPHILS # (AUTO) 9.3 10^3/uL (1.5-6.6); NEUTROPHILS % (AUTO) 71.1 %; PLT - PLATELET COUNT 354 10^3/uL (130-450); RED BLOOD COUNT 4.48 10^6/uL (4.20-5.40); RED CELL DISTRIBUTION WIDTH 13.2 % (12.0-15.0); WHITE BLOOD COUNT 13.1 x10^3/uL (4.8-10.8)
[2024-02-19 20:14] LABS: ALBUMIN 4.4 g/dL (3.2-5.5); ALBUMIN/GLOBULIN RATIO 1.7 (1.0-2.2); ALKALINE PHOSPHATASE 71 IU/L (42-121); ALT ALANINE AMINOTRANSFERASE 20 IU/L (10-60); AST ASPARTATE AMINOTRANSFERASE 19 IU/L (10-42); BILIRUBIN,TOTAL 0.3 mg/dL (0.2-1.0); BUN - BLOOD UREA NITROGEN 13 mg/dL (6-20); CALCIUM 9.5 mg/dL (8.5-10.3); CARBON DIOXIDE - CO2 26 mmol/L (21-32); CHLORIDE 106 mmol/L (101-111); CHOL/HDL RATIO 1.9 (<4.4); CHOLESTEROL 235 mg/dL; CREATININE 0.6 mg/dL (0.6-1.3); GFR - MDRD 105 (>89); GLUCOSE 101 mg/dL (74-104); HDL CHOLESTEROL 126 mg/dL; LDL CHOLESTEROL,CALCULATED 82 mg/dL; LDL/HDL RATIO 0.7 (<4.4); SODIUM 141 mmol/L (135-145); TRIGLYCERIDES 135 mg/dL (48-352); VLDL CHOLESTEROL 27 mg/dL
[2024-02-19 20:26] LABS: THYROID STIMULATING HORMONE 3.39 uIU/mL (0.34-5.60)
[2024-02-23 01:08] LABS: HCV AB Non Reactive (Non Reactive)
== END 2024-02-19 14:27 | disposition home or self-care (01) ==
LOC: LAB.S 14:26
PROVIDERS: ATTEND Registered Nurse
DX: R59.9 Enlarged lymph nodes, unspecified (principal); Z11.59 Encounter for screening for other viral diseases; Z13.228 Encounter for screening for other metabolic disorders; Z13.220 Encounter for screening for lipoid disorders; Z13.29 Encounter for screening for other suspected endocrine disorder; Z13.0 Encounter for screening for diseases of the blood and blood-forming organs and certain disorders involving the immune mechanism
CPT/HCPCS: 36415; 80053; 80061; 82378; 83721; 84443; 85025; 86803

== ENCOUNTER 2024-03-16 11:42 | Outpatient (CLI) | payer OTHER ==
[2024-03-16] MEDS ORDERED: DIATRIZOATE MEGLU/DIATRIZO SOD 30 ML BOTTLE PO ONE (11:50)
[2024-03-16] MEDS ORDERED: iohexoL-300 100 ML VIAL ONE (11:50)
[2024-03-16] MEDS: iohexoL-300 100 ML VIAL IVP ONE (13:41)
[2024-03-16] MEDS: DIATRIZOATE MEGLU/DIATRIZO SOD 30 ML BOTTLE PO ONE (14:27)
--- NOTE | 2024-03-16 17:00 | CT Report ---
PROCEDURE: Chest W INDICATIONS: PARATRACHEAL LYMPHADENOPATHY CONTRAST: 100ml [id number] TECHNIQUE: After the administration of intravenous contrast, a CT scan of the chest was performed. Images were recorded and evaluated at appropriate window settings. Reformats: axial MIP of the chest, coronal and sagittal. For radiation dose reduction, the following was used: automated exposure control, adjustme nt of mA and/or kV according to patient size. COMPARISON: Correlation is made with the accompanying imaging. FINDINGS: Image quality: Diagnostic. Chest wall and lower neck: Prior right hemithyroidectomy can be seen. The remaining visualized left t hyroid is within normal limits. There is a breast mass within the inferior right breast, as on series 2 image 50, measuring 13 x 9 mm. No axillary or supraclavicular adenopathy by size. Lungs and pleura: Within the left lower lobe posteriorly, there is an ovoid soft tissue nodule seen, as on series 4 image 33, measuring 9 x 8 mm. No definite additional suspicious pulmonary nodules are seen. Likely scarring can be seen involving the lingula. No superimposed infiltrates are seen. No pleural effusions. No pneumothorax. Mediastinum: Heart size is normal. No pericardial effusion. No large vessel abnormality. There is an enlarged right paratracheal lymph node seen, as on series 2 image 25, measuring 14 x 11 m m. Additional enlarged right peritracheal lymph node is seen more inferiorly, as on series 2 image 30 , measuring 12 x 10 mm. There is a borderline prominent prevascular lymph node on series 2 image 34, measuring 12 x 6 mm. An elongated subcarinal lymph node is seen on series 2 image 41, measuring 29 x 8 mm in greatest axial dimension. Bones: No aggressive osseous abnormality. There is accentuated thoracic kyphosis. Upper Abdomen: Please see the accompanying abdomen/pelvis CT report. IMPRESSION: Mildly enlarged mediastinal lymph nodes are seen. There is a 9 mm soft tissue nodule seen within the left lower lobe. - Please consider CT follow-up in 3-6 months. 13 mm right breast mass seen. - Follow-up mammogram/ultrasound recommended, unless already previously worked up. Additional findings: Prior right hemithyroidectomy Reviewed by: Cristobal Yuen MD on 03/16/2024 3:59 PM AKDT Approved by: Cristobal Yuen MD on 03/16/2024 3:59 PM AKDT Station ID: [id number]
--- NOTE | 2024-03-16 17:06 | CT Report ---
PROCEDURE: Abdomen/Pelvis W INDICATIONS: PARATRACHEAL LYMPHADENOPATHY CONTRAST: 100ml [id number] TECHNIQUE: After the administration of intravenous contrast, a CT scan of the abdomen and pelvis was performed. Images were recorded and evaluated at appropriate window settings. Reformats: coronal and sagittal. F or radiation dose reduction, the following was used: automated exposure control, adjustment of mA and /or kV according to patient size. COMPARISON: Correlation is made with the accompanying imaging. FINDINGS: Image quality: Diagnostic. Lower chest: Unremarkable. Liver: No solid mass. Diffuse fatty liver infiltration can be seen. Incidental note is made of focal fatty infiltration a djacent to the falciform ligament, which is not regarded to the frankly pathologic. Gallbladder: Removed. Biliary tree: No intrahepatic or extrahepatic dilation, accounting for age. Spleen: No splenomegaly. Adjacent to the splenic hilum, there is an 11 mm nodule, as on series 2 imag e 40. Pancreas: No pancreatic ductal dilation. Adrenals: Nodular thickening of the left adrenal nodule is seen measuring 15 x 8 mm, as on series 2 i mage 40. No right adrenal nodule. Kidneys and ureters: No hydronephrosis. No renal cystic lesion which requires follow up. No solid mas s. Stomach, bowel and peritoneum: No gastric or small bowel dilation. No pathologic free fluid. The colon is relatively collapsed and demonstrates generalized nodular wall thickening. Lymph nodes: No central or retroperitoneal adenopathy. Vessels: No infrarenal aortic aneurysm. Patent portal vein. Incidental note is made of a retroaortic left renal vein. PELVIS Reproductive organs: The uterus demonstrates an unremarkable appearance for age. No adnexal masses ar e seen. Bladder: No abnormal wall thickening, accounting for underdistention. Pelvic lymph nodes: No pelvic adenopathy by size criteria. Bones: No aggressive osseous abnormality. Focal L5-S1 degenerative change is seen. Milder degenerativ e changes are seen elsewhere. Other: No significant ventral or inguinal hernia. IMPRESSION: No enlarged lymph nodes can be seen within the abdomen or pelvis. Generalized colonic wall thickening can be seen. Please correlate with potential infectious and infla mmatory causes of colitis, including C. difficile colitis. No findings of perforation or abscess can be seen. There is nodular thickening of the left adrenal nodule. Please consider a follow-up adrenal protocol MRI for further evaluation, (assuming that there is no contraindication), unless already previously w orked up. 11 mm splenic nodule noted. Additional findings: Fatty liver infiltration Cholecystectomy Retroaortic left renal vein Focal L5-S1 degenerative change Reviewed by: Cristobal Yuen MD on 03/16/2024 4:05 PM AKMISBAH Approved by: Cristobal Yuen MD on 03/16/2024 4:05 PM AKMISBAH Station ID: [id number]
== END 2024-03-16 11:43 | disposition home or self-care (01) ==
LOC: DI 11:42
PROVIDERS: ATTEND Registered Nurse
DX: R59.0 Localized enlarged lymph nodes (principal); R91.1 Solitary pulmonary nodule; N63.10 Unspecified lump in the right breast, unspecified quadrant; E89.0 Postprocedural hypothyroidism; E27.8 Other specified disorders of adrenal gland; D73.9 Disease of spleen, unspecified; K76.0 Fatty (change of) liver, not elsewhere classified; Z90.49 Acquired absence of other specified parts of digestive tract; M47.817 Spondylosis without myelopathy or radiculopathy, lumbosacral region
CPT/HCPCS: 71260; 74177; Q9963; Q9967

== ENCOUNTER 2024-03-30 09:40 | Outpatient (CLI) | payer OTHER ==
--- NOTE | 2024-03-31 08:01 | Ultrasound Report ---
LIMITED ULTRASOUND OF RIGHT BREAST: 03/30/2024 CLINICAL: Patient returns today to evaluate a focal asymmetry in the right breast. Comparison is made to exams dated: 03/30/2024 mammogram, 03/16/2024 CT, and 03/16/2019 mammogram - [facility]. Color flow and real-time ultrasound of the right breast 1 o'clock region were performed. Mims scale images of the real-time examination were reviewed. There is a 1.2 cm x 1.3 cm x 0.8 cm oval mass with a minimally microlobulated margin in the right noah ast at 1 o'clock posterior depth 8 cm from the nipple. This oval mass is hypoechoic with a hyperecho ic rim and slight posterior acoustic enhancement. This correlates with mammography findings. Color flow imaging demonstrates that there is no vascularity present. IMPRESSION: SUSPICIOUS OF MALIGNANCY The 1.2 cm x 1.3 cm x 0.8 cm oval mass in the right breast most likely is a fibroadenoma and is at a low suspicion for malignancy. An ultrasound guided biopsy is recommended for confirmation. Findings and recommendations were conveyed to the patient at time of exam. This exam was interpreted at Station ID: [id number]. Electronically Signed By: Shalini shea/:03/30/2024 14:42:43 Ultrasound BI-RADS: 4a Low suspicion for malignancy BI-RADS CATEGORY: (4a) - Low Susp Biopsy [id number] Immediate follow-up LATERALITY: (L)
--- NOTE | 2024-03-31 08:01 | Mammography Report ---
BILATERAL DIGITAL DIAGNOSTIC MAMMOGRAM 3D/2D: 03/30/2024 CLINICAL: Patient returns for additional imaging over a suspected mass in the right breast. Comparison is made to exams dated: 03/16/2024 CT and 03/16/2019 mammogram - [facility]. There are scattered areas of fibroglandular density in the right breast (category b / 25%-50% glandul ar tissue). The left breast is almost entirely fatty (category a/<25% glandular tissue). There is a new 1.5 cm round equal density mass with a circumscribed margin in the right breast at 1 o 'clock posterior depth. This is seen in additional views. This correlates with the finding mentione d on recent chest CT. There are several stable focal asymmetries seen in the left breast without significant size change co mpared to prior exam. These are more prominent due to decreased overall breast density. No other significant masses, calcifications, or other findings are seen in either breast. IMPRESSION: INCOMPLETE: NEEDS ADDITIONAL IMAGING EVALUATION The new 1.5 cm round equal density mass in the right breast remains indeterminate. An ultrasound is recommended. This was performed immediately following this exam. Left mammogram is stable. Based on the Tyrer Cuzick model (a risk assessment model) the patient's lifetime risk is 7.5% and her 10 year risk is 1.8%. According to the ACR, ACS, and NCCN guidelines, an annual breast MRI exam lyn g with mammogram is recommended if the patient's lifetime risk is 20% or greater. This exam was interpreted at Station ID: [id number]. NOTE: For mammograms, a report in lay terms will be sent to the patient. Approximately 15% of breast malignancies will not be visualized mammographically. In the management of a palpable breast mass, a negative mammogram must not discourage biopsy of a clinically suspicious lesion. Electronically Signed By: Shalini shea/:03/30/2024 14:40:25 ACR BI-RADS Category 0: Incomplete 3340F PARENCHYMAL PATTERN: (A) - The breast(s) demonstrate(s) scattered fibroglandular densities. BI-RADS CATEGORY: (0) - 0 Ultrasound [id number] Immediate follow-up LATERALITY: (B)
== END 2024-03-30 09:41 | disposition home or self-care (01) ==
LOC: DI 09:40
PROVIDERS: ATTEND Registered Nurse
DX: N63.12 Unspecified lump in the right breast, upper inner quadrant (principal); R92.321 Mammographic fibroglandular density, right breast

== ENCOUNTER 2024-04-20 08:50 | Day surgery (SDC) | payer OTHER ==
--- NOTE | 2024-04-20 06:26 | HISTORY & PHYSICAL EXAMINATION ---
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 Derm: positive: Other Social & Family Hx - Social History Smoking Status: Current every day smoker ([id number] yrs) Meds/Allgy - Home Medications Home Medications: Ambulatory Orders Medication Instructions Recorded Confirmed Amitriptyline HCl 150 mg PO QPM 07/07/19 04/19/24 Butalb/Acetaminophen/Caffeine 1 cap PO Q6H PRN #10 cap 01/26/23 04/19/24 [Fioricet 50-300-40 mg Capsule] Gabapentin [Neurontin] 100 mg PO BID 04/19/24 04/19/24 Levothyroxine Sodium [Synthroid] 25 mcg PO DAILY 04/19/24 04/19/24 Methylphenidate [Ritalin] 20 mg PO TID 04/19/24 04/19/24 Topiramate [Topamax] 25 mg PO TID 04/19/24 04/19/24 Ubrogepant [Ubrelvy] 100 mg PO PRN PRN 04/19/24 04/19/24 - Allergies Allergies/Adverse Reactions: Allergies Allergy/AdvReac Type Severity Reaction Status Date / Time amoxicillin trihydrate * Allergy Severe Hives Verified 04/19/24 12:21 [From Augmentin] codeine Allergy Severe Hives Verified 04/19/24 12:21 potassium clavulanate * Allergy Severe Hives Verified 04/19/24 12:21 [From Augmentin] Impression/Plan - Problem List Problem List: Pre-op H&P I am asked to see Lainey for a screening colonoscopy examination. GI symptoms: None Family history of colon cancer/polyps: No Personal history of colon polyps: No Last colonoscopy examination: Never Anticoagulant use: No Meds: Amitriptylene, Ritalin, Gabapentin Allergies:Amoxicillin; Codine PMH: ADHD PSH: , Abdominoplasty SH: Ci/2 PPD ETOH: Social The Past Family, Social and Personal History has been reviewed with the patient. ROS Denies fevers, chills, night sweats, shortness of breath, chest pain, change in the color of skin or urine, diarrhea, constipation, hematemesis, hematochezia, headache, visual changes, muscle aches. PE VSS, Afeb HEENT: Pupils equal, round and reactive to light, sclera anicteric, normal hearing, oral mucous membranes moist and without lesions NECK: Supple without lymphadenopathy, thyromegaly or carotid bruits LUNGS: Clear to auscultation without wheezing HEART: NSR without murmurs CHEST: Equal and symmetric expansion, no rib pain ABD: Soft, nontender, no hepatosplenomegaly, no hernias GROIN: No hernias or lymphadenopathy EXTREMITIES: Normal neuro and muscular exam SKIN: Anicteric Radiologic Studies N/A Assessment: Request for a screening colonoscopy examination. Plan: Screening colonoscopy under sedation through the Day Surgery admission protocol at . Consent: Lainey has been counseled for the procedure, it's indications, risks, benefits and expected outcome as well as alternative therapies. We specifically discussed risks associated with anesthesia and insertion of the endoscope into the large intestine which includes bleeding and injury to the colon which may require surgical intervention. Lainey understands, agrees, and consents to the proposed operative strategy and requests that we proceed with the procedure as outlined in our discussion. Adrian Finney MD, [facility] General Surgery Service
[2024-04-20] MEDS: LACTATED RINGERS 1,000 ML IV ONE (09:11)
[2024-04-20] MEDS ORDERED: PROPOFOL 500 MG/50 ML 500 MG/50 ML VIAL ONE (10:42)
[2024-04-20] MEDS ORDERED: MIDAZOLAM 2 MG/2 ML VIAL ONE (10:42)
--- NOTE | 2024-04-20 10:50 | ANESTHESIA ---
Pre-Anesthesia VS, & Labs - Diagnosis screening - Procedure colonoscopy Vital Signs: Temp Pulse Resp BP Pulse Ox O2 Flow Rate 36.3 C L 96 16 118/91 H 100 04/20/24 09:10 04/20/24 09:10 04/20/24 09:10 04/20/24 09:10 04/20/24 09:10 Height: 5 ft 6 in Weight (kg): 76.8 kg Body Mass Index: 27.3 BMI Classification: Overweight - NPO >8 hours - Is Patient ?: No Home Medications and Allergies Home Medications: Ambulatory Orders Gabapentin [Neurontin] 100 mg PO BID 04/19/24 Levothyroxine Sodium [Synthroid] 25 mcg PO DAILY 04/19/24 Methylphenidate [Ritalin] 20 mg PO TID 04/19/24 Topiramate [Topamax] 25 mg PO TID 04/19/24 Ubrogepant [Ubrelvy] 100 mg PO PRN PRN 04/19/24 Amitriptyline HCl 150 mg PO QPM 07/07/19 Gabapentin [Neurontin] 100 mg PO BID 04/19/24 Levothyroxine Sodium [Synthroid] 25 mcg PO DAILY 04/19/24 Methylphenidate [Ritalin] 20 mg PO TID 04/19/24 Topiramate [Topamax] 25 mg PO TID 04/19/24 Ubrogepant [Ubrelvy] 100 mg PO PRN PRN 04/19/24 Allergies/Adverse Reactions: Allergies Allergy/AdvReac Type Severity Reaction Status Date / Time amoxicillin trihydrate * Allergy Severe Hives Verified 04/19/24 12:21 [From Augmentin] codeine Allergy Severe Hives Verified 04/19/24 12:21 potassium clavulanate * Allergy Severe Hives Verified 04/19/24 12:21 [From Augmentin] Anes History & Medical History - Anesthetic History Anesthesia Complications: reports: No previous complications Family history of Anesthesia Complications: Denies Family history of Malignant Hyperthermia: Denies - Medical History Cardiovascular: reports: Other (pt reports "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) Pulmonary: reports: None Gastrointestinal: reports: None Urinary: reports: None Neuro: reports: None Musculoskeletal: reports: Chronic back pain Endocrine/Autoimmune: reports: HyPOthyroidism Blood Disorders: reports: None Skin: reports: None Smoking Status: Current every day smoker ([id number] [id number]) Psychosocial: reports: Alcohol, Amphetamine - Surgical History General: reports: Cholecystectomy, Other Gynecologic: reports: section Orthopedic: reports: Other Dermatologic: reports: Other Other Past Surgical History: thyroidectomy Exam General: Alert, Oriented x3, Cooperative Dental: WNL Mouth Openin Fingerbreadth Neck Mobility: Normal Mallampati classification: I Thyromental Distance: 4-6 cm Respiratory: Lungs clear Cardiovascular: Regular rate Plan Anesthesia Type: General, Total IV Consent for Procedure(s) Verified and Reviewed: Yes Code Status: Attempt Resuscitation ASA classification: 2-Mild systemic disease Is this case an emergency?: No
[2024-04-20] MEDS: LACTATED RINGERS 400 ML IV ONE (11:10)
[2024-04-20 11:34] VITALS: BP 102/77; O2SAT 99
--- NOTE | 2024-04-20 15:37 | ANESTHESIA POST OP EVALUATION ---
Anesthesia Post Eval - Post Anesthesia Eval Vitals: Last Vital Signs Temp 36.5 C 04/20/24 11:14 Pulse 88 04/20/24 11:28 Resp 18 04/20/24 11:28 BP 102/77 04/20/24 11:28 Pulse Ox 99 04/20/24 11:28 O2 Flow Rate CV Function Including HR & BP: Stable Pain Control: Satisfactory Nausea & Vomiting: Negative Mental Status: Baseline Respiratory Status: Airway Patent Hydration Status: Satisfactory Anesthesia Complications: None
== END 2024-04-20 08:51 | disposition home or self-care (01) ==
LOC: SDS 08:50
PROVIDERS: ATTEND Surgery
PROC: 0DDE8ZX Extraction of Large Intestine, Via Natural or Artificial Opening Endoscopic, Diagnostic (ICD-10-PCS; principal; 2024-04-20 10:15)
DX: Z12.11 Encounter for screening for malignant neoplasm of colon (principal); K52.89 Other specified noninfective gastroenteritis and colitis; K92.2 Gastrointestinal hemorrhage, unspecified; E03.9 Hypothyroidism, unspecified; F17.210 Nicotine dependence, cigarettes, uncomplicated
CPT/HCPCS: 45380; J7120

== ENCOUNTER 2024-04-25 13:41 | Outpatient (CLI) | payer OTHER ==
[~2024-04-25 13:41] MED LIST: LIDOCAINE 1%-EPI 1:100000 20 ML MDV ONE; LIDOCAINE-MPF 1% 5 ML VIAL ONE
[2024-04-25] MEDS: LIDOCAINE-MPF 1% 5 ML VIAL TD ONE (15:50)
[2024-04-25] MEDS: LIDOCAINE 1%-EPI 1:100000 20 ML MDV SUBQ ONE (15:51)
--- NOTE | 2024-04-26 09:06 | Mammography Report ---
UNILATERAL RIGHT DIGITAL DIAGNOSTIC MAMMOGRAM - RIGHT BREAST POST-PROCEDURE IMAGING FOR MARKER PLACEM ENT: 04/25/2024 CLINICAL: Post right breast ultrasound biopsy clip placement imaging. Comparison is made to exams dated: 03/30/2024 mammogram, 03/16/2024 CT, and 03/16/2019 mammogram - [facility]. There are scattered areas of fibroglandular density in the right breast (category b / 25%-50% glandul ar tissue). There is a marker clip in the appropriate position in the right breast at 1 o'clock posterior depth. This correlates with ultrasound findings and the biopsy. IMPRESSION: POST PROCEDURE MAMMOGRAM FOR MARKER PLACEMENT There was a successful marker clip placement in the right breast posterior depth. Based on the Tyrer Cuzick model (a risk assessment model) the patient's lifetime risk is 7.5% and her 10 year risk is 1.8%. According to the ACR, ACS, and NCCN guidelines, an annual breast MRI exam lyn g with mammogram is recommended if the patient's lifetime risk is 20% or greater. This exam was interpreted at Station ID: [id number]. NOTE: For mammograms, a report in lay terms will be sent to the patient. Approximately 15% of breast malignancies will not be visualized mammographically. In the management of a palpable breast mass, a negative mammogram must not discourage biopsy of a clinically suspicious lesion. Electronically Signed By: Marquise [email or web address]:04/25/2024 16:44:31 ACR BI-RADS Category Post-procedure mammogram for marker placement PARENCHYMAL PATTERN: (A) - The breast(s) demonstrate(s) scattered fibroglandular densities. BI-RADS CATEGORY: () - Unspecified - other recall n/a LATERALITY: (B)
--- NOTE | 2024-04-28 14:33 | Ultrasound Report ---
ULTRASOUND GUIDED BIOPSY RIGHT BREAST WITH MARKING DEVICE INSERTED AND POST MAMMOGRAPHIC IMAGIN04/25 CLINICAL: Right breast mass. PATIENT CONSENT: Risks (minor bleeding, infection, vasovagal reaction and repeat procedure), benefits and alternatives were explained to the patient and written informed consent was obtained. Correlation is made to exams dated: 03/30/2024 ultrasound, 03/30/2024 mammogram, 03/16/2024 CT, and 02/16 mammogram - [facility]. An ultrasound guided biopsy using real-time ultrasound was performed for the oval mass located in the right breast at 1 o'clock posterior depth 8 cm from the nipple. This was described on the previous mammography and ultrasound reports. The skin was prepped in the usual manner. Local anesthetic was administered to the access site. A skin dwain was made in the breast. The abnormality was approached from the lateral aspect. A 14 gauge biopsy needle was placed adjacent to the abnormality under ultr asound guidance. Once the needle was documented to be in the correct location, four specimens were o btained using the Marquee biopsy device. A clip was inserted into the biopsy cavity. A sterile dres sing was applied to the access site. Post procedure mammographic imaging demonstrates the location d evice at the targeted area. The specimens were sent to the laboratory for pathological analysis. IMPRESSION: ULTRASOUND GUIDED BIOPSY BENIGN Ultrasound guided biopsy of the mass in the right breast at 1 o'clock posterior depth 8 cm from the n ipple was successful. 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 Pathol ogy results are concordant with imaging findings. Return to annual screening schedule is recommended. This exam was interpreted at Station ID: [id number]. Marquise Harmon M.D. aty/:04/28/2024 09:18:44 BI-RADS CATEGORY: () - Unspecified - other [id number] return to screening LATERALITY: (B)
== END 2024-04-25 13:42 | disposition home or self-care (01) ==
LOC: DI 13:41
PROVIDERS: ATTEND Registered Nurse
DX: N63.12 Unspecified lump in the right breast, upper inner quadrant (principal)
CPT/HCPCS: 19083